=== PATIENT | male | born 1980 | race Caucasian/White ===

== ENCOUNTER 2024-11-23 01:12 | Emergency (ER) | payer SELFPAY ==
[~2024-11-23] VITALS: Ht 172.7 cm; Wt 91.0 kg
[2024-11-23 01:17] VITALS: BP 106/77; PULSE 100; RESP 20; TEMP 35.7; O2SAT 98
== END 2024-11-23 02:19 | disposition left against medical advice (07) ==
LOC: EDSEX 01:16 → ER 01:16
DX: T65.91XA Toxic effect of unspecified substance, accidental (unintentional), initial encounter (principal); Z53.21 Procedure and treatment not carried out due to patient leaving prior to being seen by health care provider; X58.XXXA Exposure to other specified factors, initial encounter